=== PATIENT | male | born 1995 | race African-American/Black ===

== ENCOUNTER → 2019-09-06 | Outpatient (CLI) | payer BC ==
[~2019-09-06] MED LIST: ADDERALL XR30 MG PO; FOCALIN XR40 MG PO; STRATTERA 40MG40 MG PO; TENORMIN 2525 MG/TAB PO
== END ==
LOC: ZCOL.LAB 15:13
DX: R05 Cough (principal); R19.7 Diarrhea, unspecified; R09.81 Nasal congestion; Z20.828 Contact with and (suspected) exposure to other viral communicable diseases